=== PATIENT | male | born 1985 | race Caucasian/White ===

== ENCOUNTER 2018-04-08 18:36 | Inpatient (IN) | payer MEDICAID ==
[~2018-04-08] VITALS: Ht 172.7 cm; Wt 83.2 kg
[~2018-04-08 18:36] MED LIST: PROPOFOL 10 MG/ML, 100ML IV ONE; ROCURONIUM 10MG/ML,5ML ONE
[2018-04-08] MEDS ORDERED: PROPRANOLOL PO (19:40)
[2018-04-08] MEDS ORDERED: LACT20SO13 PO (19:40)
[2018-04-08] MEDS ORDERED: FOLI-17 PO (19:40)
[2018-04-08] MEDS ORDERED: SPIRONOLACTONE PO (19:40)
[2018-04-08] MEDS ORDERED: OMEPRAZOLE PO (19:40)
[2018-04-08 20:38] LABS: ALANINE AMINOTRANSFERASE 76 U/L (12-78); ALBUMIN 1.3 g/dL (3.4-5.0); ANION GAP 18 mmol/L (5-15); CALCIUM 7.6 mg/dL (8.5-10.1); CHLORIDE 106 mmol/L (98-107)
[2018-04-08 20:41] LABS: ALKALINE PHOSPHATASE 138 U/L (45-117)
[2018-04-08 20:58] LABS: BILIRUBIN,TOTAL 21.7 mg/dL (0.2-1.0)
[2018-04-08] MEDS ORDERED: SODIUM CHLORIDE 0.9% 1,000ML IVBOLUS ONE ×2 (21:00→21:30)
[2018-04-08] MEDS ORDERED: LACTULOSE 20 GM/30 ML UDC PO ONE (21:00)
[2018-04-08 21:29] LABS: TOTAL PROTEIN 5.2 g/dL (6.4-8.2)
[2018-04-08] MEDS: SODIUM CHLORIDE 0.9% 1,000 ML IV SCH (21:30)
[2018-04-08 21:44] LABS: INTERNATIONAL NORMALIZED RATIO 3.12 (0.93-1.1); PROTHROMBIN TIME 31.4 Seconds (9.6-11.5)
[2018-04-08 21:44] LABS: MD YES; MEAN CORPUSCULAR HEMOGLOBIN 33.5 pg (27.5-34.5); MEAN CORPUSCULAR HGB CONC 34.4 g/dL (33.2-36.2); MEAN CORPUSCULAR VOLUME 97.6 fL (81-97); MEAN PLATELET VOLUME 9.7 fL (7.4-10.4); PLATELET COUNT 105 x10^3/uL (130-400); RED BLOOD COUNT 3.01 x10^6/uL (4.38-5.82); RED CELL DISTRIBUTION WIDTH 14.6 % (9.4-14.8)
[2018-04-08] MEDS ORDERED: NOREPINEPHRINE 4 MG in SODIUM CHLORIDE 0.9% 246 ML IV PRN ×2 (21:48→23:07)
[2018-04-08 21:50] LABS: BAND#(MANUAL) 0.56 x10^3/uL; BANDS%(MANUAL) 3 % (0-7); BASOS#(MANUAL) 0.19 x10^3/uL (0-0.1); BASOS% (MANUAL) 1 % (0-1); EOS#(MANUAL) 0.19 x10^3/uL (0.0-0.4); EOS% (MANUAL) 1 % (1-7); LYMPH#(MANUAL) 1.86 x10^3/uL (1-3.4); LYMPHS% (MANUAL) 10 % (22-44); METAMYELOCYTES# (MANUAL) 0.19 x10^3/uL (0-0); METAMYELOCYTES% (MANUAL) 1 % (0-1); MONOS#(MANUAL) 1.67 x10^3/uL (0.3-2.7); MONOS% (MANUAL) 9 % (2-9); MYELOCYTES# (MANUAL) 0.19 x10^3/uL (0-0); MYELOCYTES% (MANUAL) 1 % (0-0); REACTIVE LYMPHS # (MANUAL) 0.19 x10^3/uL (0-0); REACTIVE LYMPHS % (MANUAL) 1 % (0-0); SEG#(MANUAL) 13.58 x10^3/uL (1.8-6.8); SEGS% (MANUAL) 73 % (42-75)
[2018-04-08 21:52] LABS: <PLATELET ESTIMATE> DECREASED; <PLT MORPHOLOGY> NORMAL PLT MORPH; <RBC MORPHOLOGY> NORMAL; PMNS WITH VACUOLES 1+; TOXIC GRAN 2+
[2018-04-08] MEDS ORDERED: PROPOFOL 10 MG/ML, 20ML ONE (21:57)
[2018-04-08] MEDS ORDERED: KETAMINE 50 MG/ML, 10ML ONE (21:57)
[2018-04-08] MEDS ORDERED: KETAMINE 10 MG/ML, 20ML IV ONE (22:00)
[2018-04-08] MEDS ORDERED: FENTANYL PF 100 MCG/2ML IV ONE (22:00)
[2018-04-08] MEDS ORDERED: ROCURONIUM 10 MG/ML,10ML IVPush ONE (22:00)
[2018-04-08] MEDS ORDERED: VANCOMYCIN 1,500 MG in SODIUM CHLORIDE 0.9% 250 ML IV ONE (22:00)
[2018-04-08] MEDS ORDERED: PIPERACILLIN/TAZO/PMX 3.375GM 50 ML IVPB ONE (22:00)
[2018-04-08] MEDS ORDERED: VANCOMYCIN PER PHARMACY IV ONE (22:00)
[2018-04-08] MEDS ORDERED: FENTANYL PF 100 MCG/2ML ONE (22:28)
[2018-04-08] MEDS: PROPOFOL 100 ML IV PRN (22:35)
[2018-04-08] MEDS ORDERED: SODIUM CHLORIDE 0.9%, 500ML IVBOLUS ONE (23:00)
[2018-04-08] MEDS ORDERED: BISACODYL 10 MG SUPP PR PRN (23:30)
[2018-04-08] MEDS ORDERED: DEXTROSE 50%, 50ML SYRINGE IVPush PRN (23:30)
[2018-04-08] MEDS: LACTULOSE 10 GM/15 ML UDC NG SCH (23:30)
[2018-04-08] MEDS ORDERED: FENTANYL PF 100 MCG/2ML IVPush PRN (23:30)
[2018-04-08] MEDS ORDERED: LIDOCAINE-MPF 1%, 2ML ENDO PRN (23:30)
[2018-04-08] MEDS ORDERED: PHARMACY MAY ADJ FOR RENAL FX MC SCH (23:30)
[2018-04-08] MEDS: SODIUM CHLORIDE FLUSH 10ML SYR IVF SCH (23:30)
[2018-04-08] MEDS: ALBUTEROL/IPRATROPIUM 2.5MG/0.5MG, 3 ML INLINE SCH (23:30)
[2018-04-08] MEDS: INSULIN LISPRO 100 UNITS/ML, PEN SQ-INSULIN SCH (23:30)
[2018-04-08] MEDS ORDERED: SENNOSIDES 8.8 MG/5 ML ORAL SOL NG PRN (23:30)
[2018-04-08] MEDS ORDERED: LACTULOSE 20 GM/30 ML UDC NG PRN (23:30)
[2018-04-08] MEDS ORDERED: ONDANSETRON 2MG/ML, 2ML IVPush PRN (23:30)
[2018-04-08] MEDS ORDERED: DEXTROSE 4 GM TAB.CHEW PO PRN (23:30)
[2018-04-08] MEDS ORDERED: SENNA/DOCUSATE TABLET NG PRN (23:30)
[2018-04-08] MEDS ORDERED: GLUCAGON 1 MG IM PRN (23:30)
[2018-04-09] LABS: PROTIME 31.4 Seconds (9.6-11.5)
[2018-04-09 00:01] LABS: BILIRUBIN,INDIRECT 6.5 mg/dL (0.0-2.0)
[2018-04-09 00:03] LABS: BILIRUBIN, DIRECT 14.7 mg/dL (0.1-0.2); BILIRUBIN,TOTAL 21.2 mg/dL (0.2-1.0)
[2018-04-09 01:12] LABS: D-DIMER (DIC) 3.99 ug/mlFEU (0.00-0.52)
[2018-04-09] MEDS ORDERED: NOREPINEPHRINE 8 MG in SODIUM CHLORIDE 0.9% 242 ML IV PRN (01:30)
[2018-04-09] MEDS: NOREPINEPHRINE 8 MG in SODIUM CHLORIDE 0.9% 242 ML IV PRN ×4 (01:59→16:13)
[2018-04-09] MEDS: SODIUM CHLORIDE 0.9% 1,000 ML IV SCH ×6 (01:59→23:13)
[2018-04-09] MEDS: RIFAXIMIN 550 MG TABLET NG SCH ×3 (02:05→20:54)
[2018-04-09] MEDS: SODIUM BICARBONATE 8.4% 150 MEQ in DEXTROSE 5% 1,000 ML IV SCH ×3 (02:10→17:29)
[2018-04-09] MEDS: ALBUTEROL/IPRATROPIUM 2.5MG/0.5MG, 3 ML INLINE SCH ×6 (02:46→22:30)
[2018-04-09] MEDS ORDERED: PIPERACILLIN/TAZO/PMX 2.25GM 50 ML IV SCH (03:00)
[2018-04-09] MEDS ORDERED: VASOPRESSIN 100 UNIT in SODIUM CHLORIDE 0.9% 495 ML IV PRN (03:00)
[2018-04-09 03:11] VITALS: BP 95/32
[2018-04-09 04:04] VITALS: BP 120/50
[2018-04-09 05:30] LABS: CULTURE INDICATED? YES; MICROSCOPIC INDICATED
[2018-04-09 06:45] LABS: FIO2 55 %
[2018-04-09 06:47] LABS: MEAN CORPUSCULAR HEMOGLOBIN 33.8 pg (27.5-34.5); MEAN CORPUSCULAR HGB CONC 34.4 g/dL (33.2-36.2); MEAN CORPUSCULAR VOLUME 98.2 fL (81-97); MEAN PLATELET VOLUME 9.3 fL (7.4-10.4); PLATELET COUNT 103 x10^3/uL (130-400); RED BLOOD COUNT 3.11 x10^6/uL (4.38-5.82); RED CELL DISTRIBUTION WIDTH 14.5 % (9.4-14.8)
[2018-04-09 06:52] LABS: ANION GAP 20 mmol/L (5-15); CALCIUM 6.8 mg/dL (8.5-10.1); CHLORIDE 110 mmol/L (98-107)
[2018-04-09 06:53] LABS: CREATININE 8.01 mg/dL (0.7-1.3)
[2018-04-09] MEDS: INSULIN LISPRO 100 UNITS/ML, PEN SQ-INSULIN SCH ×3 (07:00→21:47)
[2018-04-09 07:17] LABS: MD YES
[2018-04-09 07:18] LABS: LYMPHS% (MANUAL) 14 % (22-44); MONOS% (MANUAL) 11 % (2-9); MYELOCYTES% (MANUAL) 2 % (0-0)
[2018-04-09 07:19] LABS: <RBC MORPHOLOGY> NORMAL
[2018-04-09 07:20] LABS: TOXIC GRAN 1+
[2018-04-09 07:21] LABS: <PLATELET ESTIMATE> DECREASED; <PLT MORPHOLOGY> NORMAL PLT MORPH; PMNS WITH VACUOLES 1+
[2018-04-09 07:22] LABS: BANDS%(MANUAL) 3 % (0-7); SEGS% (MANUAL) 70 % (42-75)
[2018-04-09] MEDS ORDERED: PANTOPRAZOLE 40 MG IV IV SCH (09:00)
[2018-04-09] MEDS: PANTOPRAZOLE 40 MG IV IVPush SCH (09:42)
[2018-04-09] MEDS: LACTULOSE 10 GM/15 ML UDC NG SCH ×3 (09:42→20:54)
[2018-04-09] MEDS: HYDROCORTISONE 100 MG INJ. IVPush SCH ×2 (09:42→17:29)
[2018-04-09] MEDS: SODIUM CHLORIDE FLUSH 10ML SYR IVF SCH ×2 (09:43→20:54)
[2018-04-09] MEDS: PROPOFOL 100 ML IV PRN (10:34)
[2018-04-09] MEDS: PIPERACILLIN/TAZO/PMX 2.25GM 50 ML IV SCH (14:38)
[2018-04-09] MEDS: NOREPINEPHRINE 16 MG in SODIUM CHLORIDE 0.9% 234 ML IV PRN (20:56)
[2018-04-09] MEDS ORDERED: EPINEPHRINE 2 MG in SODIUM CHLORIDE 0.9% 248 ML IV PRN (21:00)
[2018-04-09] MEDS: EPINEPHRINE 4 MG in SODIUM CHLORIDE 0.9% 246 ML IV PRN (22:55)
[2018-04-10] MEDS ORDERED: LORazepam 2 MG/ML, 1ML ONE (01:03)
[2018-04-10] MEDS ORDERED: LORazepam 2 MG/ML, 1ML IVPush PRN (01:30)
[2018-04-10] MEDS: HYDROCORTISONE 100 MG INJ. IVPush SCH ×2 (02:11→08:31)
[2018-04-10] MEDS: EPINEPHRINE 4 MG in SODIUM CHLORIDE 0.9% 246 ML IV PRN ×2 (02:38→05:58)
[2018-04-10] MEDS: ALBUTEROL/IPRATROPIUM 2.5MG/0.5MG, 3 ML INLINE SCH ×2 (02:38→06:06)
[2018-04-10] MEDS: PIPERACILLIN/TAZO/PMX 2.25GM 50 ML IV SCH (03:07)
[2018-04-10] MEDS: INSULIN LISPRO 100 UNITS/ML, PEN SQ-INSULIN SCH ×2 (03:19→08:31)
[2018-04-10 04:39] VITALS: BP 97/25
[2018-04-10] MEDS: SODIUM BICARBONATE 8.4% 150 MEQ in DEXTROSE 5% 1,000 ML IV SCH (04:40)
[2018-04-10] MEDS: NOREPINEPHRINE 16 MG in SODIUM CHLORIDE 0.9% 234 ML IV PRN (05:58)
[2018-04-10 06:41] LABS: ALANINE AMINOTRANSFERASE 868 U/L (12-78); ALBUMIN 0.8 g/dL (3.4-5.0); ANION GAP 23 mmol/L (5-15); CALCIUM 6.1 mg/dL (8.5-10.1); CHLORIDE 105 mmol/L (98-107)
[2018-04-10 06:43] LABS: BILIRUBIN,TOTAL 12.4 mg/dL (0.2-1.0); TOTAL PROTEIN 3.7 g/dL (6.4-8.2)
[2018-04-10 06:45] LABS: MD YES
[2018-04-10 06:46] LABS: MEAN CORPUSCULAR HEMOGLOBIN 34.4 pg (27.5-34.5); MEAN CORPUSCULAR HGB CONC 33.6 g/dL (33.2-36.2); MEAN CORPUSCULAR VOLUME 102.5 fL (81-97); MEAN PLATELET VOLUME 9.6 fL (7.4-10.4); PLATELET COUNT 61 x10^3/uL (130-400); RED BLOOD COUNT 2.32 x10^6/uL (4.38-5.82); RED CELL DISTRIBUTION WIDTH 15.5 % (9.4-14.8)
[2018-04-10 06:50] LABS: <PLATELET ESTIMATE> DECREASED; <PLT MORPHOLOGY> NORMAL PLT MORPH; ANISOCYTOSIS 1+; BAND#(MANUAL) 1.85 x10^3/uL; BANDS%(MANUAL) 5 % (0-7); LYMPHS% (MANUAL) 29 % (22-44); METAMYELOCYTES# (MANUAL) 0.37 x10^3/uL (0-0); METAMYELOCYTES% (MANUAL) 1 % (0-1); MONOS#(MANUAL) 3.32 x10^3/uL (0.3-2.7); MONOS% (MANUAL) 9 % (2-9); MYELOCYTES# (MANUAL) 0.74 x10^3/uL (0-0); MYELOCYTES% (MANUAL) 2 % (0-0); SEG#(MANUAL) 19.93 x10^3/uL (1.8-6.8); SEGS% (MANUAL) 54 % (42-75); SMUDGE CELLS 1+; TOXIC GRAN 1+
[2018-04-10 06:51] LABS: PMNS WITH VACUOLES 1+
[2018-04-10 06:52] LABS: ALKALINE PHOSPHATASE 149 U/L (45-117)
[2018-04-10] MEDS: PANTOPRAZOLE 40 MG IV IVPush SCH (07:30)
[2018-04-10 07:31] LABS: PROTHROMBIN TIME 94.4 Seconds (9.6-11.5)
[2018-04-10 07:32] LABS: INTERNATIONAL NORMALIZED RATIO 9.58 (0.93-1.1)
[2018-04-10] MEDS: SODIUM CHLORIDE FLUSH 10ML SYR IVF SCH (08:31)
[2018-04-10] MEDS: SODIUM CHLORIDE 0.9% 1,000 ML IV SCH (08:31)
[2018-04-10] MEDS: RIFAXIMIN 550 MG TABLET NG SCH (08:31)
[2018-04-10] MEDS: LACTULOSE 10 GM/15 ML UDC NG SCH (08:31)
[2018-04-10] MEDS ORDERED: LORazepam 2 MG/ML, 1ML IV ONE (09:30)
[2018-04-10] MEDS ORDERED: morphine SULFATE 10 MG/ML, 1ML IV ONE (09:30)
[2018-04-10] MEDS ORDERED: morphine SULFATE 10 MG/ML, 1ML IV PRN (09:30)
[2018-04-10] MEDS ORDERED: ATROPINE OPHTH SOLN 1%, 2ML PO PRN (09:30)
[2018-04-10] MEDS ORDERED: LORazepam 2 MG/ML, 1ML IV PRN (09:30)
== END 2018-04-10 09:52 | disposition expired | DRG 871 ==
LOC: ED 23:27 → EDIP 23:28 → SUATTDRO 23:28 → ED 23:59 → CCU 04-09 00:40
PROVIDERS: ADMIT Hospitalist; ATTEND Hospitalist
PROC: 0BH17EZ Insertion of Endotracheal Airway into Trachea, Via Natural or Artificial Opening (ICD-10-PCS; principal; 2018-04-08)
PROC: 5A1945Z Respiratory Ventilation, 24-96 Consecutive Hours (ICD-10-PCS; 2018-04-08)
PROC: 05HM33Z Insertion of Infusion Device into Right Internal Jugular Vein, Percutaneous Approach (ICD-10-PCS; 2018-04-08)
PROC: B543ZZA Ultrasonography of Right Jugular Veins, Guidance (ICD-10-PCS; 2018-04-08)
PROC: 0T9B70Z Drainage of Bladder with Drainage Device, Via Natural or Artificial Opening (ICD-10-PCS; 2018-04-09)
DX: A41.9 Sepsis, unspecified organism (principal); E43 Unspecified severe protein-calorie malnutrition; J18.9 Pneumonia, unspecified organism; J96.00 Acute respiratory failure, unspecified whether with hypoxia or hypercapnia; N17.0 Acute kidney failure with tubular necrosis; D65 Disseminated intravascular coagulation [defibrination syndrome]; K85.90 Acute pancreatitis without necrosis or infection, unspecified; K76.7 Hepatorenal syndrome; G92 Toxic encephalopathy; D68.4 Acquired coagulation factor deficiency; R57.9 Shock, unspecified; E27.40 Unspecified adrenocortical insufficiency; K70.10 Alcoholic hepatitis without ascites; D64.9 Anemia, unspecified; K52.9 Noninfective gastroenteritis and colitis, unspecified; K70.30 Alcoholic cirrhosis of liver without ascites; K70.40 Alcoholic hepatic failure without coma; E87.5 Hyperkalemia; K80.20 Calculus of gallbladder without cholecystitis without obstruction; K82.9 Disease of gallbladder, unspecified; R34 Anuria and oliguria; R60.9 Edema, unspecified; Z68.27 Body mass index [BMI] 27.0-27.9, adult
CPT/HCPCS: 31500; 36415; 36556; 36600; 99291; J7620; 70450; 71045; 74176; 80048; 80053; 80307; 81001; 82140; 82247; 82248; 82533; 82803; 82962; 83605; 83690; 83735; 84478; 85025; 85049; 85379; 85384; 85610; 85730; 86850; 86900; 87040; 87070; 87081; 87086; 87205; 93005; 94002; 94003; 94640; 96361; 96365; 96366; 96368; J2543; J2704; J3370; J7070; C9113; J0171; J1720; J2060; J2270; J7030; J7040; J7050